=== PATIENT | female | born 1970 | race Caucasian/White ===

== ENCOUNTER → 2018-07-12 | Outpatient (CLI) | payer OTHER ==
--- NOTE | 2018-07-12 16:44 | KCIC ---
EXAM: Bilateral screening mammogram. HISTORY: 47-year-old female presents for screening mammography. TECHNIQUE: Full-field digital craniocaudal and mediolateral oblique views of both breasts are obtained for evaluation. Computer aided detection with [employer] software version 9.3 was applied. COMPARISON: None. As a baseline mammogram. BREAST PARENCHYMAL DENSITY: Level B - Scattered fibroglandular densities. FINDINGS: There is a small asymmetry within the posterior central left breast along the nipple line. There is no suspicious calcifications or distortion within either breast. IMPRESSION: BI-RADS Category 0: Additional imaging needed. RECOMMENDATION: Further evaluation with a full field true lateral view and spot compression views of the left breast to assess a small asymmetry is recommended. If your mammogram demonstrates that you have dense breast tissue, which could hide abnormalities, and if you have other risk factors for breast cancer that have been identified, you might benefit from supplemental screening tests that may be suggested by your ordering physician. Dense breast tissue, in and of itself, is a relatively common condition. This information is not provided to cause undue concern, but rather to raise your awareness and to promote discussion with your physician regarding the presence of other risk factors, in addition to dense breast tissue. A report of your mammography results will be sent to you and your physician. You should contact your physician if you have any questions or concerns regarding this report. Mammography is a sensitive method for finding small breast cancers, but it does not detect them all and is not a substitute for careful clinical examination. A negative mammogram does not negate a clinically suspicious finding and should not result in delay in biopsying a clinically suspicious abnormality. PQRS compliance statement - Patient information was entered into a reminder system with a target due date for the next mammogram. "Our facility is accredited by the [employer] Mammography [employer]." Electronically signed by: Elizabet Armendariz MD (07/12/2018 4:40 PM) [id number]
== END | disposition home or self-care (01) ==
LOC: KCIC MAMMO 15:59
PROVIDERS: ATTEND Family Medicine
DX: Z12.31 Encounter for screening mammogram for malignant neoplasm of breast (principal)
CPT/HCPCS: 77067

== ENCOUNTER → 2018-07-26 | Outpatient (CLI) | payer OTHER ==
--- NOTE | 2018-07-26 09:59 | KCIC ---
Left breast diagnostic ultrasound HISTORY: Asymmetric tissue density in the 12:00 left breast Sonographic examination of the left breast was performed and multiple static images obtained Area of hypoechogenicity in the 5:00 left breast 4 cm from the nipple could be fibrocystic changes. There are normal-appearing lymph nodes in left axilla. There is no solid mass seen. There is no focal abnormality at 12:00. IMPRESSION: No ultrasound correlation with the mammographic abnormality. Recommend a left mammogram in 6 months to assess stability. These results were given to the patient in person. BI-RADS Category 3: Probably Benign. Electronically signed by: Gregory Blum III, MD (07/26/2018 9:55 AM) [id number]
--- NOTE | 2018-07-26 10:01 | KCIC ---
History: asymmetric tissue density 12:00 left breast on the July 12 2018 mammogram. Technique: The following digital mammographic additional views were obtained: spot CC spot MLO true ML. Computer aided detection was utilized with [employer] Second Look 7.2-H Findings: The density persists but appears more vague on additional views suggesting superimposition of normal fibroglandular tissue. This appears similar to the right breast. Impression: Asymmetric tissue density is likely an island of normal fibroglandular tissue. Recommend a left mammogram in 6 months to assess stability. These results were given to the patient in person. BI-RADS Category 3: Probably Benign. Patient information is entered into the [facility] reminder system using [employer] with a target due date for the next screening mammogram. The patient will receive a reminder. A mammogram does not have 100% sensitivity and therefore a negative imaging study should not delay further work up of a suspicious abnormality. "Our facility is accredited by the [employer] Mammography Program." Electronically signed by: Gregory Blum III, MD (07/26/2018 9:56 AM) [facility]
== END | disposition home or self-care (01) ==
LOC: KCIC MAMMO 09:00
PROVIDERS: ATTEND Family Medicine
DX: R92.8 Other abnormal and inconclusive findings on diagnostic imaging of breast (principal)
CPT/HCPCS: 76641; 77065

== ENCOUNTER → 2018-11-21 | Outpatient (CLI) | payer OTHER ==
--- NOTE | 2018-11-21 14:10 | KCIC ---
Examination: MRI of the left knee without contrast HISTORY: History of left knee pain, swelling COMPARISON: None available Technique: Multiplanar, multisequence MR imaging of the left knee was performed without contrast FINDINGS: The anterior cruciate ligament, posterior cruciate ligament appear intact. The medial meniscus, lateral meniscus appear intact. The medial collateral ligament is intact. Lateral collateral ligamentous complex including the fibular collateral ligament, biceps femoris tendon, popliteus tendon appear intact. The extensor mechanism is intact. Small knee joint effusion. The visualized medial, lateral retinaculum appear intact. There is deep fissuring of cartilage identified in the patellofemoral compartment in the patellar trochlea and the lateral facet region with small subchondral cysts. Mild superficial fraying of cartilage identified in the medial compartment. Mild joint space loss identified in the medial, lateral, patellofemoral compartments. IMPRESSION: 1. Grade III chondromalacia patella. 2. Small knee joint effusion. 3. Mild tricompartmental degenerative changes. Electronically signed by: Ronnie Blanca MD (11/21/2018 2:07 PM) [id number]
--- NOTE | 2018-11-21 14:16 | KCIC ---
Examination: MRI of the right knee without contrast HISTORY: History of right pain COMPARISON: None available TECHNIQUE: Multiplanar, multisequence MR imaging of the right knee was performed without contrast FINDINGS: The anterior cruciate ligament, posterior cruciate ligament appear intact. There is a probable small 7 mm ganglion cyst at the distal attachment of the posterior cruciate ligament. The medial meniscus, lateral meniscus appears intact. The extensor mechanism is intact. The medial collateral ligament, lateral collateral ligamentous complex including the fibular collateral ligament, biceps femoris tendon, popliteus tendon appear intact. Small knee joint effusion. There is deep fissuring of cartilage identified in the patellofemoral compartment with small subchondral cystic changes in the patella. There is superficial fraying of cartilage identified in the medial compartment. Small osteophyte formation identified in the medial, lateral compartment femoral compartments. IMPRESSION: 1. Grade II chondromalacia patella. 2. Probable small 7 mm ganglion cyst at the distal attachment of the posterior cruciate ligament. 3. Small knee joint effusion. Electronically signed by: Ronnie Blanca MD (11/21/2018 2:13 PM) [facility]
== END | disposition home or self-care (01) ==
LOC: KCIC MRI 12:42
PROVIDERS: ATTEND Orthopaedic Surgery
DX: M22.42 Chondromalacia patellae, left knee (principal); M22.41 Chondromalacia patellae, right knee; M25.462 Effusion, left knee; M25.461 Effusion, right knee; M25.761 Osteophyte, right knee; M25.862 Other specified joint disorders, left knee
CPT/HCPCS: 73721

== ENCOUNTER → 2019-02-07 | Outpatient (CLI) | payer OTHER ==
--- NOTE | 2019-02-07 11:40 | KCIC ---
LEFT DIAGNOSTIC MAMMOGRAPHY History: Six-month follow-up. Comparison: Bilateral mammogram . Diagnostic left mammogram and breast ultrasound 07/26/2018. Technique: Left CC and MLO digital mammogram views were obtained. Findings: Breast Tissue Density B : There are scattered areas of fibroglandular density. The asymmetry in the posterior central left breast is unchanged. There are no dominant masses, suspicious microcalcifications or architectural distortion. IMPRESSION: Interval stability of focal asymmetry in the posterior central left breast. Recommend diagnostic bilateral mammogram in 6 months to document continued stability. BI-RADS category 3: Probably benign. The images were reviewed with computer-aided detection. Patient information is entered into the reminder system with a target due date for the next screening mammogram. Mammography is the most sensitive method for finding small breast cancers, but it does not detect them all and is not a substitute for careful clinical examination. A negative mammogram does not negate a clinically suspicious finding and should not result in delay in biopsying a clinically suspicious abnormality. "Our facility is accredited by the [employer] Mammography [employer]." Electronically signed by: Alex Carter MD (02/07/2019 11:37 AM) [facility]
== END | disposition home or self-care (01) ==
LOC: KCIC MAMMO 10:59
PROVIDERS: ATTEND Family Medicine
DX: R92.8 Other abnormal and inconclusive findings on diagnostic imaging of breast (principal)
CPT/HCPCS: 77065

== ENCOUNTER → 2019-07-04 | Outpatient (CLI) | payer OTHER ==
--- NOTE | 2019-07-05 14:18 | KCIC ---
Bilateral diagnostic digital mammograms with 3-D tomosynthesis: Reason for examination: Follow-up parenchymal density. Comparison is made to previous studies dated 02/07/2019, 07/26/2018 and 07/12/2018. Bilateral mammograms in CC and oblique projections were obtained with 2-D imaging and 3-D tomosynthesis imaging on a Siemens Inspiration unit and reviewed on the workstation. Interpretation was made with the benefit of CAD. The skin and nipples show no abnormalities. No abnormal axillary lymph nodes are seen. The breast parenchyma shows scattered fatty and fibroglandular density. (Breast density: Category B.) There continues to be some nodular parenchymal density at the 1:00 position posteriorly in the left breast which is unchanged. There is also suggestion of some nodularity at the 6:00 B position of the left breast. There are no new dominant masses, suspicious calcifications or architectural distortion. Impression: Small parenchymal density persists at the 1:00 position posteriorly in the left breast. Small parenchymal density suggested at the 6:00 B position of the left breast. Ultrasound to follow. BI-RAD Category 0: Incomplete. Needs additional imaging evaluation. Left breast ultrasound: Comparison is made to previous study dated 07/26/2018. Left whole breast ultrasound including evaluation of all 4 quadrants and the retroareolar and axillary regions of the left breast was performed. There is some minimal fibrocystic type change at the 2:00 position 9 cm from the nipple. No other cystic or solid nodules or architectural distortions are seen. No abnormal appearing lymph nodes are seen in the axilla. IMPRESSION: Minimal fibrocystic changes at the 2:00 position. No suspicious abnormality seen in the left breast. Recommend routine mammographic follow-up. BI-RADS Category 2: Benign. "Our facility is accredited by the [employer] Mammography [employer]." This patient's information has been entered into a reminder system for the patient to be notified with the results of her examination and a target date for the next mammogram. Electronically signed by: Melina Berry MD (07/05/2019 2:15 PM) [facility]
== END | disposition home or self-care (01) ==
LOC: KCIC MAMMO 10:04
PROVIDERS: ATTEND Family Medicine
DX: R92.8 Other abnormal and inconclusive findings on diagnostic imaging of breast (principal)
CPT/HCPCS: 76641; 77066; G0279; 77062

== ENCOUNTER → 2020-06-17 | Outpatient (CLI) | payer OTHER ==
--- NOTE | 2020-06-17 16:57 | KCIC ---
Bilateral digital screening mammograms and tomosynthesis Reason for examination: Routine screening. Comparison is made to previous study dated mammogram July 04, 2019 and priors. Left breast ultrasound July 04, 2019. Routine CC and MLO digital views obtained. Interpretation was made with the benefit of CAD. The skin and nipples show no abnormalities. No abnormal lymph nodes are seen. The breast parenchyma is scattered fibroglandular elements. (Breast density: Category B.) There are no suspicious masses, suspicious calcifications or architectural distortions. Nodularity of the breast tissue is stable. Impression: Negative mammogram. Recommend routine screening. BI-RADS Category 2: Benign. "Our facility is accredited by the [employer] Mammography [employer]." This patient's information has been entered into a reminder system for the patient to be notified with the results of her examination and a target date for the next mammogram. Electronically signed by: Charles Sterling MD (06/17/2020 4:54 PM) [id number]
== END ==
LOC: KCIC MAMMO 09:13
PROVIDERS: ATTEND Family Medicine
DX: Z12.31 Encounter for screening mammogram for malignant neoplasm of breast (principal); N64.89 Other specified disorders of breast
CPT/HCPCS: 77063; 77067

== ENCOUNTER → 2021-06-26 | Outpatient (CLI) | payer OTHER ==
--- NOTE | 2021-06-26 15:25 | KCIC ---
Bilateral digital screening mammograms with 3-D tomosynthesis: Reason for examination: Routine screening. Comparison is made to previous studies dated back to 07/12/2018. Bilateral mammograms in CC and oblique projections were obtained with 2-D imaging and 3-D tomosynthes is imaging on a Siemens Inspiration unit and reviewed on the workstation. Interpretation was made wit h the benefit of CAD. The skin and nipples show no abnormalities. No abnormal axillary lymph nodes are seen. The breast par enchyma shows scattered fatty and fibroglandular density. (Breast density: Category B.) There continu e to be small nodular asymmetries in the left breast which are stable. There are no new dominant mass es, suspicious calcifications or architectural distortion. Impression: No evidence of malignancy. Recommend routine screening. BI-RAD Category 2: Benign. "Our facility is accredited by the [employer] Mammography Program." This patient's information has been entered into a reminder system for the patient to be notified wit h the results of her examination and a target date for the next mammogram. Electronically signed by: Melina Berry MD (06/26/2021 3:22 PM) [email or web address]
== END ==
LOC: KCIC MAMMO 13:04
PROVIDERS: ATTEND Family Medicine
DX: Z12.31 Encounter for screening mammogram for malignant neoplasm of breast (principal)
CPT/HCPCS: 77063; 77067